=== PATIENT | female | born 1995 | race Caucasian/White ===

== ENCOUNTER 2019-01-05 19:29 | Emergency (ER) | payer OTHER, MEDICAID ==
[2019-01-05] MEDS: DEXAMETHASONE 10 MG/ML 1 ML INJ IM (22:10)
== END 2019-01-05 22:51 | disposition home or self-care (01) ==
LOC: FTE 19:29
DX: M54.5 Low back pain (principal); M54.2 Cervicalgia
CPT/HCPCS: 81025; 96372; 99284-25